=== PATIENT | female | born 1985 | race Caucasian/White ===

== ENCOUNTER 2017-06-29 08:55 | Inpatient (IN) | payer OTHER ==
[~2017-06-29] VITALS: Ht 157.4 cm; Wt 88.5 kg
[2017-06-29 11:00] VITALS: BP 104/63
[2017-06-29 12:00] VITALS: BP 104/63; BP 121/73
[2017-06-29 12:24] LABS: BILIRUBIN NEGATIVE (NEGATIVE); BLOOD 3+ (NEGATIVE); CLARITY SL CLOUDY (CLEAR); COLOR YELLOW (YELLOW); GLUCOSE NEGATIVE (NEGATIVE); KETONE TRACE (NEGATIVE); LEUKO ESTERASE NEGATIVE (NEGATIVE); NITRITE NEGATIVE (NEGATIVE); SPECIFIC GRAVITY 1.025 (1.005-1.030); UROBILINOGEN 0.2 E.U./dl (0.2-1.0)
[2017-06-29 12:35] LABS: BACTERIA 2+; RBC 31-40 rbc/hpf (0-2)
[2017-06-29 12:36] LABS: EPITHELIAL CELLS 16-20
[2017-06-29 12:38] LABS: URINE AMPHETAMINES < 1000 (1000ng/ml); URINE BARBITURATES < 200 (200ng/ml); URINE BENZODIAZEPINES > 200 (200ng/ml); URINE CANNABINOIDS (THC) < 50 (50ng/ml); URINE COCAINE < 300 (300ng/ml); URINE METHADONE < 300 (300ng/ml); URINE OPIATES > 300 (300ng/ml); URINE PHENCYCLIDINE < 25 (25ng/ml)
[2017-06-29 12:53] LABS: BASO % 0.4 % (0.0-1.0); EOS # 0.2 10*3/uL (0.0-0.4); EOS % 1.9 % (1.0-4.0); HEMATOCRIT 36.9 % (37.0-47.0); HEMOGLOBIN 12.1 g/dl (12.0-16.0); LYMPH # 2.2 10*3/uL (1.3-4.4); LYMPH % 22.8 % (27.0-41.0); MEAN CELL VOLUME 90.4 fl (81.0-99.0); MEAN CORPUSCULAR HGB 29.7 pg (27.0-31.0); MEAN CORPUSCULAR HGB CONC 32.8 g/dl (33.0-37.0); MEAN PLATELET VOLUME 8.4 fl (9.6-12.3); MONO # 0.5 10*3/uL (0.1-1.0); MONO % 5.4 % (3.0-9.0); NEUT # 6.6 10*3/uL (2.3-7.9); NEUT % 69.2 % (47.0-73.0); PLATELET COUNT AUTOMATED 337 10*3/uL (130-400); RED BLOOD COUNT 4.08 10*6/uL (4.10-5.10); RED CELL DISTRI WIDTH 12.5 % (0-14.5); WHITE BLOOD COUNT 9.5 10*3/uL (4.8-10.8)
[2017-06-29 13:00] LABS: INTERNATIONAL NORM RATIO 0.9 (2.0-3.5)
[2017-06-29 13:08] LABS: ALBUMIN 3.1 gm/dl (3.1-4.5); ALKALINE PHOSPHATASE 88 U/L (45-117); BUN 8 mg/dl (7-24); CHLORIDE 108 mmol/L (98-107); CREATININE 0.61 mg/dL (0.55-1.02); POTASSIUM 3.6 mmol/L (3.5-5.1); SGOT/AST 21 IU/L (3-35); SGPT/ALT 24 U/L (12-78); SODIUM 141 mmol/L (136-145); TOTAL PROTEIN 6.5 gm/dL (6.4-8.2)
[2017-06-29 13:10] LABS: ACETAMINOPHEN (TYLENOL) < 2.0 ug/ml (10-30); ETHYL ALCOHOL < 3.0 mg/dl (<3)
[2017-06-29 13:11] LABS: BETA-HCG, QUANT < 1.0 mIU/mL (1-3)
[2017-06-29] MEDS ORDERED: METOPROLOL SUCC25 M2 PO (15:14)
[2017-06-29] MEDS ORDERED: FLONASE ALLERG9.9 ML NAS (15:15)
[2017-06-29] MEDS ORDERED: VITAMIN D31000 UNI1 PO (15:16)
[2017-06-29] MEDS ORDERED: IBU-200200 MG PO (15:18)
[2017-06-29] MEDS ORDERED: VISTARIL50 MG PO (15:19)
[2017-06-29 16:00] VITALS: BP 121/68
[2017-06-29 20:00] VITALS: BP 113/69
[2017-06-30] VITALS: BP 107/73
[2017-06-30 08:00] VITALS: BP 108/76
[2017-06-30 08:13] LABS: HEPATITIS B SURFACE AG Negative (Negative); HEPATITIS C VIRUS ANTIBODY <0.1 s/co (0.0-0.9); HIV 1+2 AB + HIV1 P24 AG Non Reactive (Non Reactive)
[2017-06-30 12:00] VITALS: BP 116/63
[2017-06-30 16:00] VITALS: BP 111/66
[2017-06-30 20:37] VITALS: BP 106/71
[2017-07-01] VITALS: BP 106/50
[2017-07-01 08:00] VITALS: BP 98/55
[2017-07-01 12:00] VITALS: BP 98/55
[2017-07-01] MEDS ORDERED: METHOCARBAMOL750 M1 PO (15:15)
[2017-07-01] MEDS ORDERED: DICYCLOMINE HCL20 MG PO (15:15)
[2017-07-01] MEDS ORDERED: ALPRAZOLAM0.25 M2 PO (15:15)
[2017-07-01] MEDS ORDERED: ZOFRAN 4 MG ED2 TAB PO (15:16)
[2017-07-01 16:00] VITALS: BP 102/50
[2017-07-01 20:00] VITALS: BP 117/55
[2017-07-02] VITALS: BP 123/76
[2017-07-02 08:00] VITALS: BP 116/69
== END 2017-07-02 11:26 | disposition home or self-care (01) | DRG 897 ==
LOC: 5E 08:55
PROVIDERS: Registered Nurse
DX: F11.10 Opioid abuse, uncomplicated (principal); B19.10 Unspecified viral hepatitis B without hepatic coma; E55.9 Vitamin D deficiency, unspecified; F13.10 Sedative, hypnotic or anxiolytic abuse, uncomplicated; F41.1 Generalized anxiety disorder; I10 Essential (primary) hypertension; F17.210 Nicotine dependence, cigarettes, uncomplicated; Z71.6 Tobacco abuse counseling; Z79.899 Other long term (current) drug therapy; Z88.1 Allergy status to other antibiotic agents; Z88.8 Allergy status to other drugs, medicaments and biological substances; Z82.3 Family history of stroke

== ENCOUNTER 2018-10-28 22:54 | Emergency (ER) | payer OTHER ==
[~2018-10-28] VITALS: Ht 157.4 cm; Wt 63.5 kg
[~2018-10-28 22:54] MED LIST: ALPRAZOLAM0.25 M2 PO; DICYCLOMINE HCL20 MG PO; FLONASE ALLERG9.9 ML NAS; IBU-200200 MG PO; METHOCARBAMOL750 M1 PO; METOPROLOL SUCC25 M2 PO; VISTARIL50 MG PO; VITAMIN D31000 UNI1 PO; ZOFRAN 4 MG ED2 TAB PO
[2018-10-28 23:31] LABS: BASO # 0.1 10*3/uL (0.0-0.1); BASO % 0.4 % (0.0-1.0); EOS # 0.1 10*3/uL (0.0-0.4); EOS % 0.4 % (1.0-4.0); HEMOGLOBIN 11.9 g/dl (12.0-16.0); LYMPH # 2.8 10*3/uL (1.3-4.4); LYMPH % 19.4 % (27.0-41.0); MEAN CELL VOLUME 91.6 fl (81.0-99.0); MEAN CORPUSCULAR HGB 30.3 pg (27.0-31.0); MEAN CORPUSCULAR HGB CONC 33.1 g/dl (33.0-37.0); MEAN PLATELET VOLUME 8.7 fl (9.6-12.3); MONO # 0.9 10*3/uL (0.1-1.0); MONO % 6.3 % (3.0-9.0); NEUT # 10.5 10*3/uL (2.3-7.9); NEUT % 73.2 % (47.0-73.0); PLATELET COUNT AUTOMATED 396 10*3/uL (130-400); RED BLOOD COUNT 3.93 10*6/uL (4.10-5.10); WHITE BLOOD COUNT 14.4 10*3/uL (4.8-10.8)
[2018-10-28 23:43] LABS: ACT PARTIAL THROMBO TIME 23.1 SECONDS (20.0-32.1); INTERNATIONAL NORM RATIO 0.9 (2.0-3.5)
[2018-10-28 23:50] LABS: ALBUMIN 3.5 gm/dl (3.1-4.5); ALKALINE PHOSPHATASE 78 U/L (45-117); BUN 12 mg/dl (7-24); CHLORIDE 108 mmol/L (98-107); CREATININE 0.69 mg/dL (0.55-1.02); POTASSIUM 3.6 mmol/L (3.5-5.1); SGOT/AST 10 IU/L (3-35); SGPT/ALT 18 U/L (12-78); SODIUM 139 mmol/L (136-145); TOTAL PROTEIN 6.8 gm/dL (6.4-8.2)
[2018-10-28 23:51] LABS: TROPONIN I < 0.015 ng/ml (<0.045)
[2018-10-29] MEDS ORDERED: Motrin,Rufen800 MG PO (06:05)
== END 2018-10-29 06:35 | disposition home or self-care (01) ==
LOC: ED 22:54
PROVIDERS: Emergency Medicine Emergency Medical Services
DX: R07.89 Other chest pain (principal); R11.10 Vomiting, unspecified; R68.83 Chills (without fever); I10 Essential (primary) hypertension; F17.200 Nicotine dependence, unspecified, uncomplicated; Z79.899 Other long term (current) drug therapy; Z88.1 Allergy status to other antibiotic agents